=== PATIENT | male | born 1950 | race Caucasian/White ===

== ENCOUNTER 2017-03-15 18:01 | Inpatient (IN) ==
[2017-03-15] MEDS ORDERED: ASPIRIN 325 MG TABLET PO STA (18:26)
[2017-03-15] MEDS ORDERED: NITROGLYCERIN 2% OINT 1 INCH/GM PACK TOP STA (18:26)
[2017-03-15] MEDS ORDERED: METOPROLOL TARTRATE 5 MG/5 ML VIAL IV STA (18:26)
[2017-03-15] MEDS ORDERED: ASPIRIN 325 MG TABLET ONE (18:30)
[2017-03-15] MEDS ORDERED: NITROGLYCERIN 2% OINT 1 INCH/GM PACK TOP ONE (18:30)
[2017-03-15] MEDS ORDERED: METOPROLOL TARTRATE 5 MG/5 ML VIAL IV ONE (18:30)
--- NOTE | 2017-03-15 18:30 | EKG Report ---
Stationary ECG Study [facility] ER Test Date: 03/15/2017 6:21:14 PM Pat Name: LAURIE GREWAL Department: Room: Gender: M Emergency Room Specialist: MILI Schaffer : 1950 Requested by: Tanner Levine Order Number: [id number] Reading MD: KIEL JONES Intervals [place] Rate: 67 P: 70 CO: 162 QRS: -48 QRSD: 107 T: -80 QT: 454 QTc: 470 Interpretive Statements SINUS RHYTHM PATTERN CONSISTENT WITH PULMONARY DISEASE LEFT ANTERIOR FASCICULAR BLOCK INFERIOR MYOCARDIAL INFARCTION, OF INDETERMINATE AGE MARKED T-WAVE ABNORMALITY, CONSIDER ANTEROLATERAL ISCHEMIA Electronically Signed On 03-15-17 19:19:54 CDT by KIEL JONES [email or web address]
--- NOTE | 2017-03-15 18:31 | Emergency Department Note ---
Arrival - Arrival Chief Complaint: Chest Pain Stated Complaint: elev amol, sent by nathalie Jenkins [place] ED Nursing Triage Note: Pt sent from [facility] for Abnormal Trop level. Pt c/o chest pain last night. Mode of Arrival: Ambulatory Limitations: No Limitations Source: Patient Time Seen by Provider: 03/15/17 18:26 - History of Present Illness HPI Narrative: This 67-year-old white male presents with a history of several hours of severe central chest pain last night associated with diaphoresis but no shortness of breath, nausea, or vomiting. During the course of the discomfort he took 3 aspirins and the pain eventually gradually dissipated to nothing. The patient went to the [facility] this morning for evaluation and was found to have an elevated troponins and was referred here for further evaluation. The patient states that he has been pain-free since everything ceased last night and other than feeling like he was beat up, he does not complain of shortness of breath or any nausea. Currently he appears in stable medical condition. Onset (ago): hour(s) (Patient presents 18 hours post onset of symptoms) Allergies/Adverse Reactions: Allergies Allergy/AdvReac Type Severity Reaction Status Date / Time No Known Allergies Allergy Unverified 01/20/16 16:30 Home Medications: Home Medications Medication Instructions Recorded Confirmed Type Losartan [Cozaar] 50 mg PO QAM 03/15/17 03/15/17 History Metoprolol Succinate 50 mg PO QAM 03/15/17 03/15/17 History Sertraline [Zoloft] 25 mg PO QAM 03/15/17 03/15/17 History Review of System - Review of System 12 point system: reviewed and no additional remarkable complaints except as stated - Review of System Constitutional: Present: as per HPI Respiratory: Present: as per HPI Cardiovascular: Present: as per HPI Gastrointestinal: Present: as per HPI Medical,Surgical,& Family Hx - Medical History Cardio: History of: Hypertension Endocrine: History of: Dyslipidemia - Surgical History HEENT Surgeries: Surgical HX of: Eye Surgery (Left) Reproductive Surgeries: Surgical HX of;: Vasectomy - Family History Family History: Reports;: Family Cancer, Family Diabetes - Social History Smoking Status: Current every day smoker Exam Physical Examination: GENERAL: Obese white male in no acute distress. HEENT: Normocephalic. No trauma. Moist mucous membranes. EOMI. PERRLA. ENT NML NECK: Supple. No adenopathy. CARDIAC: Regular. No murmurs. Heart rate 67 CHEST: Clear to auscultation. No respiratory distress. O2 sat 97% ABDOMEN: Soft. Nontender. Active bowel sounds. EXTREMITIES: No trauma. Normal ROM. No pedal edema. SKIN: No diaphoresis. No rash. NEURO: Alert. Neuro intact no focal deficits. Vital Signs: Vital Signs Temperature 98.5 F 03/15/17 19:39 Pulse Rate 61 03/15/17 19:39 Respiratory Rate 18 03/15/17 19:39 Blood Pressure 140/86 03/15/17 19:39 O2 Sat by Pulse Oximetry 97 03/15/17 18:46 Course - Reevaluation(s) Reevaluation #1: Discussed with patient the need for hospitalization post [place]. - Consultations Consultation #1: Discussed with Dr. Fang who will admit the patient for further evaluation treatment. Results - Labs CBC & BMP: 03/15/17 18:29 03/15/17 18:29 Labs: I have reviewed the laboratory and noted the persistent elevation in troponin and the bump in BMP. - Impressions EKG sinus rhythm with normal IN interval and QRS duration. Evidence of old inferior infarct as well as a recent anteroseptal infarct with persistent T- wave inversion laterally and inferiorly. - Diagnostic Findings Procedure: Chest x-ray: image reviewed by me, report reviewed by me (No acute disease) Disposition Clinical Impression: Acute myocardial infarction Case discussed with: patient, patient's family Disposition: Still a Patient Condition: Guarded Time of Disposition: 19:50
[2017-03-15] MEDS ORDERED: CLOPIDOGREL 300 MG TABLET PO STA (18:35)
[2017-03-15] MEDS ORDERED: ONDANSETRON 4 MG/2 ML VIAL IV STA (18:35)
[2017-03-15] MEDS ORDERED: ONDANSETRON 4 MG/2 ML VIAL ONE (18:37)
[2017-03-15] MEDS ORDERED: CLOPIDOGREL 300 MG TABLET ONE (18:37)
[2017-03-15 18:41] LABS: Basophils # 0.1 10*3/uL (0.0-0.2); Basophils % 0.6 % (0.0-0.8); Eosinophils # 0.1 10*3/uL (0.0-0.87); Hematocrit 47.8 VOL% (42.0-52.0); Hemoglobin 16.2 GM/DL (14.0-18.0); Immature Granulocytes % 0.5 %; Immature Granulocytes Absolute 0.06 #; Lymphocytes # 4.1 10*3/uL (1.4-4.0); Lymphocytes % 32.8 % (21.2-54.2); Mean Corpuscular HGB Conc 33.9 GM/DL (32-36); Mean Corpuscular Hemoglobin 32 PG (27-34); Mean Corpuscular Volume 93.9 FL (87-102); Mean Platelet Volume 9.9 FL (9.6-12.0); Monocytes # 1.2 10*3/uL (0.11-0.8); Monocytes % 9.3 % (1.7-12.7); Neutrophils # 6.9 10*3/uL (1.4-7.4); Neutrophils % 55.8 % (38.7-73.9); Platelet Count 257 T/CUMM (130-400); Red Blood Count 5.09 MC/CUMM (3.8-5.5); Red Cell Distribution Width 13.3 % (9.3-17.3); White Blood Count 12.4 T/CUMM (4-12)
--- NOTE | 2017-03-15 18:52 | XRay Report ---
History: Chest pain Date: 03/15/2017 Study: Chest x-ray AP portable Comparison exam: February 25, 2015 There is stable mild cardiomegaly. There is no mediastinal mass. The pulmonary vasculature is not engorged. The lungs and pleural spaces are generally clear. Osseous structures are similar. Impression: No acute cardiopulmonary process compared to the previous study PROCEDURE INTERPRETED AT [facility] DEPARTMENT OF RADIOLOGY Final Report Signed by: Dr. Paola Hernandez
[2017-03-15 19:01] LABS: PT Patient Result 10.6 SECS; Partial Thromboplastin Time 27.1 SECS (0-40)
[2017-03-15 19:07] LABS: Albumin 3.6 G/DL (3.4-5.0); Bilirubin,Total 0.9 MG/DL (0.2-1.0); CKMB % 8.3 %; Calcium 9.1 MG/DL (8.5-10.1); Osmolality,Calculated 274.7 MOS/KG (273-304); Potassium 3.8 MMOL/L (3.5-5.1); Total Protein 7.4 G/DL (6.4-8.3)
[2017-03-15 19:12] LABS: Troponin I Only 3.41 NG/ML (0.00-0.045)
[2017-03-15 19:34] LABS: Apearance,Urine CLEAR (Clear); Bilirubin,Urine Negative (Negative); Blood, Urine Negative (Negative); Glucose,Urine (UA) Negative (Negative); Ketones,Urine Negative (Negative); Mucus,Urine Occasional /LPF (Occasional); Nitrite,Urine Negative (Negative); Protein,Urine Negative; RBC,Urine <1 /HPF (0-4); Squamous Epithelial Cell,Urine Occasional /HPF (0-10); Urine Color Yellow (Yellow); Urine Specific Gravity 1.014 (1.001-1.035); Urine Urobilinogen < 2.0 EU/DL (0.2-1.0); WBC,Urine 3 /HPF (0-6)
[2017-03-15] MEDS ORDERED: ENOXAPARIN 40 MG/0.4 ML SYRINGE SUBCUT STA (19:46)
[2017-03-15 19:50] LABS: Barbiturates Screen,Urine Negative (Negative); Benzodiazepines Screen,Urine Negative (Negative); Cannabinoid Screen,Urine Negative (Negative); Opiate Screen,Urine Negative (Negative); Phencyclidine Screen,Urine Negative (Negative)
[2017-03-15] MEDS ORDERED: ONDANSETRON 4 MG/2 ML VIAL IV PRN ×2 (19:52→21:16)
[2017-03-15] MEDS ORDERED: ENOXAPARIN 40 MG/0.4 ML SYRINGE ONE (19:58)
--- NOTE | 2017-03-15 20:57 | Cardiology History & Physical ---
Assessment and Plan (1) Anterior subendocardial IN Status: Acute Assessment and plan: Patient EKG and enzymes, it appears he has had an anterior IN. I suspect is not transmural We will continue aspirin We will continue Plavix Echo/Doppler --tomorrow, evaluate post IN Serial EKGs lipids have been checked. His LDL is above 200. We will treat per guidelines Since she is statin intolerant, will use a low-dose of Crestor Could add selenium if needed Add an BETI inhibitor post IN Add a low-dose of carvedilol post IN--beta-virgei I discussed with the patient the benefits of stopping tobacco/nicotine, the problems with continuing to use it, and options of treatment. The patient is considering this option. will like to get a heart cath on Saturday. Left heart cath and possible PTCA or stent were discussed with the patient. The risk of the procedure include but are not limited to a small risk of injury to the vessel, abnormal heart rhythm, stroke, heart attack, need for emergent surgery, contrast reaction, restenosis, infection, or . The patient voices understanding, agrees with the plan, and desires to proceed with the heart catheterization. Current Visit: Yes (2) Smoker Status: Acute Current Visit: Yes (3) Carotid disease, bilateral Status: Acute Current Visit: Yes (4) Parkinsons disease Status: Acute Current Visit: Yes (5) Peripheral neuropathy Status: Acute Current Visit: Yes (6) Hypercholesterolemia Status: Acute Current Visit: Yes (7) Overweight Status: Acute Current Visit: Yes (8) Alcohol use Status: Acute Current Visit: Yes History of Present Illness Chief complaint: "I hurt my chest yesterday" History of present illness: Mr. Barkley is a 67 year old male PCP: Morena Jose, nurse practitioner, [place], [place] Multimedia Production Assistant: None-it will be me 67-year-old male with no history of known CAD. Last night, he had severe chest pain. No nausea vomiting. He took 3 aspirin. He stated home. Chest pain went away. Did today, he went to [place] to be seen by his nurse practitioner, Ms. Morena Jose, [facility] . She did some labs. Has trouble getting blood drawn so she was able to do labs. 1 or 2 weeks ago she had an x-ray done by him that showed some calcification of his carotid arteries. . [facility] did some labs. His troponin was elevated 3.75. CK was normal at 158. EKG showed anterior IN. He was seen here. I was asked see him. Currently is having no chest pain. No orthopnea, PND, edema, palpitations, syncope, cough wheezing or phlegm. Past medical history: Hypertension probable Parkinson's disease-per Dr. Brandon Peripheral neuropathy Inactive Overweight Hypercholesterolemia Statin intolerance-is tried several side effects Not allergic to contrast Allergies: No known Social: Does smoke cigarettes. Small amount. Does drink some alcohol. He likes his whiskey and a cigarette. Family history: There is a family history of CAD. family history of diabetes. Post corneal surgery SPH: No, used to, yes, yes and yes, fbc, j No bleeding in the pt's bowels, urine, or coughing up blood. No planned surgery for the next year. No contraindication to anticoagulation for a year. Home Medications Medication Instructions Recorded Confirmed Type Losartan [Cozaar] 50 mg PO QAM 03/15/17 03/15/17 History Metoprolol Succinate 50 mg PO QAM 03/15/17 03/15/17 History Sertraline [Zoloft] 25 mg PO QAM 03/15/17 03/15/17 History Allergies Allergy/AdvReac Type Severity Reaction Status Date / Time No Known Allergies Allergy Unverified 01/20/16 16:30 12 point system: reviewed and no additional remarkable complaints except as stated (A 12 point review of systems is negative except for as mentioned in HPI. ) Medical,Surgical,& Family Hx - Medical History Cardio: History of: Hypertension Endocrine: History of: Dyslipidemia - Surgical History HEENT Surgeries: Surgical HX of: Eye Surgery (Left) Reproductive Surgeries: Surgical HX of;: Vasectomy - Family History Family History: Reports;: Family Cancer, Family Diabetes - Social History Smoking Status: Current some day smoker Frequency of Alcohol Use: Occasionally Type of Drug Use: None Lives With:: Significant Other (???) Functional capacity: independent ambulation Cardiology Physical Exam - Constitutional Vitals: Vital Signs Temp Pulse Resp BP Pulse Ox 98.5 F 62 18 147/88 100 03/15/17 19:39 03/15/17 20:27 03/15/17 20:27 03/15/17 20:27 03/15/17 20:27 Intake and Output 03/15/17 03/15/17 03/15/17 07:59 15:59 23:59 Other: Weight 97.023 kg Patient Weight 03/15/17 23:59 Weight 97.023 kg Exam: HEENT: Pupils equal, reactive to light and accommodation Neck: NoJVD or bruit Lungs clear to auscultation Heart: Regular rhythm rate with normal S1 and S2. Apical S4 Abdomen: No hepatosplenomegaly Spine/extremities: No clubbing, cyanosis, or edema Neuro: Nonfocal Psych: No depression or anxiety Femoral pulses are 4+. Foot pulses are 3+. Result/EKG - Labs CBC & BMP: 03/15/17 18:29 03/15/17 18:29 Lab Results: I have reviewed the past 24 hour labs Labs: Laboratory Results - last 24 hr 03/15/17 03/15/17 03/15/17 18:29 18:29 18:29 WBC RBC Hgb Hct MCV MCH MCHC RDW Plt Count MPV Neut % (Auto) Lymph % (Auto) [place] % (Auto) Eos % (Auto) Baso % (Auto) Neut # (Auto) Lymph # (Auto) [place] # (Auto) Eos # (Auto) Baso # (Auto) Immature Gran % Nucleated RBC % Immature Gran # Nucleated RBCs # Immature Plt Fraction INR 1.0 PT Patient/Control Mix 10.6 Circ Anticoag PTT 27.1 Sodium 138 Potassium 3.8 Chloride 103 Carbon Dioxide 28 Anion Gap 10.8 BUN 13 Creatinine 1.10 GFR Calculation 86 BUN/Creatinine Ratio 11.00 Glucose 101 Calculated Osmolality 274.7 Calcium 9.1 Total Bilirubin 0.90 AST 28 ALT 18 Alkaline Phosphatase 92 Total Creatine Kinase 158 CK-MB (CK-2) 13.1 H CK and CKMB Interp 8.3 Troponin I 3.410 H B-Natriuretic Peptide 499 H Total Protein 7.4 Albumin 3.6 Globulin 3.8 H Albumin/Globulin Ratio 0.9 L Urine Color Urine Appearance Urine pH Ur Specific [place] Urine Protein Urine Glucose (UA) Urine Ketones Urine Blood Urine Nitrate Urine Bilirubin Urine Urobilinogen Urine Leukocytes Urine RBC Urine WBC Ur Squamous Epith Cells Urine Mucus Ur Culture Indicated? Urine Opiates Screen Ur Barbiturates Screen Ur Phencyclidine Scrn U Amphetamine/Methamph U Benzodiazepines Scrn U Cocaine Metab Screen U Cannabinoids Screen 03/15/17 03/15/1717 18:29 19:20 19:20 WBC 12.4 H RBC 5.09 Hgb 16.2 Hct 47.8 MCV 93.9 MCH 32 MCHC 33.9 RDW 13.3 Plt Count 257 MPV 9.9 Neut % (Auto) 55.8 Lymph % (Auto) 32.8 [place] % (Auto) 9.3 Eos % (Auto) 1.0 Baso % (Auto) 0.6 Neut # (Auto) 6.9 Lymph # (Auto) 4.1 H [place] # (Auto) 1.2 H Eos # (Auto) 0.1 Baso # (Auto) 0.1 Immature Gran % 0.5 Nucleated RBC % 0.0 Immature Gran # 0.06 Nucleated RBCs # 0.00 Immature Plt Fraction 0.0 INR PT Patient/Control Mix Circ Anticoag PTT Sodium Potassium Chloride Carbon Dioxide Anion Gap BUN Creatinine GFR Calculation BUN/Creatinine Ratio Glucose Calculated Osmolality Calcium Total Bilirubin AST ALT Alkaline Phosphatase Total Creatine Kinase CK-MB (CK-2) CK and CKMB Interp Troponin I B-Natriuretic Peptide Total Protein Albumin Globulin Albumin/Globulin Ratio Urine Color Yellow Urine Appearance Clear Urine pH 6.0 Ur Specific [place] 1.014 Urine Protein Negative Urine Glucose (UA) Negative Urine Ketones Negative Urine Blood Negative Urine Nitrate Negative Urine Bilirubin Negative Urine Urobilinogen < 2.0 H Urine Leukocytes Negative Urine RBC <1 Urine WBC 3 Ur Squamous Epith Cells Occasional Urine Mucus Occasional Ur Culture Indicated? Not indicated Urine Opiates Screen Negative Ur Barbiturates Screen Negative Ur Phencyclidine Scrn Negative U Amphetamine/Methamph Negative U Benzodiazepines Scrn Negative U Cocaine Metab Screen Negative U Cannabinoids Screen Negative - Diagnostic Findings Procedure: Chest x-ray: report reviewed by me - EKG EKG results: interpreted by me
[2017-03-15] MEDS ORDERED: METOPROLOL TARTRATE 50 MG TABLET PO SCH (21:00)
[2017-03-15] MEDS ORDERED: MAGNESIUM SULF RIDER 4 GM in PREMIX 1 EACH IV PRN (21:16)
[2017-03-15] MEDS ORDERED: ACETAMINOPHEN 325 MG TABLET PO PRN (21:16)
[2017-03-15] MEDS ORDERED: MAGNESIUM SULF RIDER 2 GM in PREMIX 1 EACH IV PRN (21:16)
[2017-03-15] MEDS: CARVEDILOL 12.5 MG TABLET PO SCH (21:48)
[2017-03-16] MEDS: NITROGLYCERIN 2% OINT 1 INCH/GM PACK TOP SCH ×4 (00:43→17:48)
[2017-03-16 05:10] LABS: Basophils # 0.1 10*3/uL (0.0-0.2); Basophils % 0.9 % (0.0-0.8); Eosinophils # 0.2 10*3/uL (0.0-0.87); Eosinophils % 1.8 % (0.00-10.9); Hematocrit 43.5 VOL% (42.0-52.0); Hemoglobin 14.7 GM/DL (14.0-18.0); Immature Granulocytes % 0.4 %; Immature Granulocytes Absolute 0.04 #; Lymphocytes # 3.8 10*3/uL (1.4-4.0); Lymphocytes % 39.7 % (21.2-54.2); Mean Corpuscular HGB Conc 33.8 GM/DL (32-36); Mean Corpuscular Hemoglobin 32 PG (27-34); Mean Platelet Volume 10.1 FL (9.6-12.0); Monocytes # 0.8 10*3/uL (0.11-0.8); Monocytes % 8.4 % (1.7-12.7); Neutrophils # 4.7 10*3/uL (1.4-7.4); Neutrophils % 48.8 % (38.7-73.9); Platelet Count 235 T/CUMM (130-400); Red Blood Count 4.58 MC/CUMM (3.8-5.5); Red Cell Distribution Width 13.6 % (9.3-17.3); White Blood Count 9.5 T/CUMM (4-12)
[2017-03-16 05:49] LABS: Albumin 3.1 G/DL (3.4-5.0); Bilirubin,Total 0.7 MG/DL (0.2-1.0); Calcium 8.7 MG/DL (8.5-10.1); Total Protein 6.2 G/DL (6.4-8.3)
[2017-03-16 05:50] LABS: CKMB % 8.2 %; Osmolality,Calculated 278.5 MOS/KG (273-304); Potassium 4.3 MMOL/L (3.5-5.1)
[2017-03-16 05:51] LABS: Troponin I Only 2.81 NG/ML (0.00-0.045)
--- NOTE | 2017-03-16 07:48 | EKG Report ---
Stationary ECG Study [facility] Test Date: 03/16/2017 7:49:01 AM Pat Name: LAURIE GREWAL Department: Room: 125 Gender: M Burner Operator: MYRTLE : 1950 Requested by: Kiel Fang Order Number: [id number] Reading MD: KIEL FANG Intervals [place] Rate: 64 P: 64 [place]: 169 QRS: -58 QRSD: 110 T: 231 QT: 514 QTc: 523 Interpretive Statements SINUS RHYTHM LEFT ANTERIOR FASCICULAR BLOCK ANTERIOR MYOCARDIAL INFARCTION, PROBABLY RECENT INFERIOR MYOCARDIAL INFARCTION, OF INDETERMINATE AGE Electronically Signed On 03-16-17 12:20:10 CDT by KIEL FANG [email or web address]
[2017-03-16] MEDS: ASPIRIN 325 MG TABLET PO SCH (08:49)
[2017-03-16] MEDS: CARVEDILOL 12.5 MG TABLET PO SCH ×2 (08:49→21:08)
[2017-03-16] MEDS: PANTOPRAZOLE 40 MG TABLET PO SCH (08:49)
[2017-03-16] MEDS: CAPTOPRIL 6.25 MG TABLET PO SCH ×3 (08:49→21:08)
[2017-03-16] MEDS: SERTRALINE 25 MG TABLET PO SCH (08:49)
[2017-03-16] MEDS: ENOXAPARIN 40 MG/0.4 ML SYRINGE SUBCUT SCH ×2 (08:49→21:08)
[2017-03-16] MEDS ORDERED: CLOPIDOGREL 75 MG TABLET PO SCH (09:00)
--- NOTE | 2017-03-16 12:51 | ECHO Report ---
Randal Barkley Exam Date: 03/16/2017 08:31 Referring Physician: Technologist: Tiffany Crane RDCS Age: 67 Ht (in): 71 Wt (lb): 213 Gender: M Exam Location: [facility] Echo Indications: Chest pain, unspecified, Anterior subendocardial HI, Nicotine dependence, cigarettes, uncomplicated, Bilateral carotid disease, Parkinsons, Peripheral neuropathy, Essential (primary) hypertension, Dyslipidemia, Hypercolesterolemia, ETOH use BP: 131 / 89 HR: 70 Rhythm: Sinus Technical Quality: Good IMPRESSIONS Moderate left ventricular hypertrophy. Left ventricular ejection fraction is estimated at 40 -50%. Distal anterolateral, mid- distal septal, and apical hypokinesis. Mild atrial enlargement in apical view (elongated RA),. Mild atrial enlargement in apical view (elongated LA). Mild tricuspid valve regurgitation. Tricuspid regurgitation velocities suggest a PAP of 40 mmHg. MEASUREMENTS (Male / Female) Normal Values 2D ECHO LV Diastolic Diameter PLAX 5.1 cm 4.2 - 5.9 / 3.9 - 5.3 cm LV Systolic Diameter PLAX 3.1 cm LV Fractional Shortening PLAX 39.4 % IVS Diastolic Thickness 1.6 cm 0.6 - 1.0 / 0.6 - 0.9 cm LVPW Diastolic Thickness 1.6 cm 0.6 - 1.0 / 0.6 - 0.9 cm RV Internal Dim ED PLAX 3.2 cm Aortic Root Diameter 3.8 cm LA Systolic Diameter LX 5.3 cm 3.0 - 4.0 / 2.7 - 3.8 cm DOPPLER TR Peak Velocity 273.0 cm/s TR Peak Gradient 29.8 mmHg FINDINGS Left Ventricle Normal left ventricular cavity size. Moderate left ventricular hypertrophy. Left ventricular ejection fraction is estimated at 40 - 50%. distal anterolateral, mid distal septal, and apical hypokinesis Right Ventricle The right ventricle is normal in size and function. Right Atrium Mild atrial enlargement in apical view (elongated RA), Left Atrium Mild atrial enlargement in apical view (elongated LA). Mitral Valve Morphologically normal mitral valve without significant stenosis or prolapse. There is no mitral regurgitation. Aortic Valve Morphologically normal aortic valve without significant sclerosis or stenosis. There is no aortic regurgitation. Tricuspid Valve Morphologically normal tricuspid valve. Mild tricuspid valve regurgitation. Tricuspid regurgitation velocities suggest a PAP of 40 mmHg. Pulmonic Valve Morphologically normal pulmonic valve without significant stenosis. There is no pulmonic regurgitation. Pericardium Normal pericardium without effusion. Aorta Normal ascending aorta dimension. Eric Fang MD (Electronically Signed) Final Date: 16 March 2017 12:50
--- NOTE | 2017-03-16 14:09 | Cardiology Progress Note ---
Assessment and Plan (1) Anterior subendocardial AL Status: Acute Assessment and plan: Patient EKG and enzymes, it appears he has had an anterior AL. I suspect is not transmural We will continue aspirin We will continue Plavix Echo/Doppler --tomorrow, evaluate post AL Serial EKGs lipids have been checked. His LDL is above 200. We will treat per guidelines Since she is statin intolerant, will use a low-dose of Crestor Could add selenium if needed Add an BETI inhibitor post AL Add a low-dose of carvedilol post AL--beta-virgie I discussed with the patient the benefits of stopping tobacco/nicotine, the problems with continuing to use it, and options of treatment. The patient is considering this option. will like to get a heart cath on Saturday. Left heart cath and possible PTCA or stent were discussed with the patient. The risk of the procedure include but are not limited to a small risk of injury to the vessel, abnormal heart rhythm, stroke, heart attack, need for emergent surgery, contrast reaction, restenosis, infection, or . The patient voices understanding, agrees with the plan, and desires to proceed with the heart catheterization. 03/16/17 No more chest pain No overt heart failure Echo reveals moderate LV systolic dysfunction We will do the heart cath on Saturday at 8 AM. He agrees. Recheck CMP Continue Lovenox Managed transfer, moved to telemetry Current Visit: Yes (2) Smoker Status: Acute Current Visit: Yes (3) Carotid disease, bilateral Status: Acute Current Visit: Yes (4) Parkinsons disease Status: Acute Current Visit: Yes (5) Peripheral neuropathy Status: Acute Current Visit: Yes (6) Hypercholesterolemia Status: Acute Current Visit: Yes (7) Overweight Status: Acute Current Visit: Yes (8) Alcohol use Status: Acute Current Visit: Yes Cardiology - PN: Subj Interval history: No chest pain or shortness of breath Exam (Progress Note) - Constitutional Vitals: Period Temp Pulse Resp BP Sys/Moser Pulse Ox Last 24 Hr 97.3 F-98.8 F 58-85 13-25 105-162/69-111 90-100 Exam: HEENT: Pupils equal, reactive to light and accommodation Neck: NoJVD or bruit Lungs clear to auscultation Heart: Regular rhythm rate with normal S1 and S2. Apical S4, 2/6 systolic ejection murmur along the left lower sternal border Abdomen: No hepatosplenomegaly Spine/extremities: No clubbing, cyanosis, or edema Neuro: Nonfocal Psych: No depression or anxiety Result/EKG - Labs CBC & BMP: 03/16/17 04:29 03/16/17 04:29 Lab Results: I have reviewed the past 24 hour labs Labs: Laboratory Results - last 24 hr 03/15/17 03/15/17 03/15/17 18:29 18:29 18:29 WBC RBC Hgb Hct MCV MCH MCHC RDW Plt Count MPV Neut % (Auto) Lymph % (Auto) [place] % (Auto) Eos % (Auto) Baso % (Auto) Neut # (Auto) Lymph # (Auto) [place] # (Auto) Eos # (Auto) Baso # (Auto) Immature Gran % Nucleated RBC % Immature Gran # Nucleated RBCs # Immature Plt Fraction INR 1.0 PT Patient/Control Mix 10.6 Circ Anticoag PTT 27.1 Sodium 138 Potassium 3.8 Chloride 103 Carbon Dioxide 28 Anion Gap 10.8 BUN 13 Creatinine 1.10 GFR Calculation 86 BUN/Creatinine Ratio 11.00 Glucose 101 Calculated Osmolality 274.7 Calcium 9.1 Total Bilirubin 0.90 AST 28 ALT 18 Alkaline Phosphatase 92 Total Creatine Kinase 158 CK-MB (CK-2) 13.1 H CK and CKMB Interp 8.3 Troponin I 3.410 H B-Natriuretic Peptide 499 H Total Protein 7.4 Albumin 3.6 Globulin 3.8 H Albumin/Globulin Ratio 0.9 L Urine Color Urine Appearance Urine pH Ur Specific [place] Urine Protein Urine Glucose (UA) Urine Ketones Urine Blood Urine Nitrate Urine Bilirubin Urine Urobilinogen Urine Leukocytes Urine RBC Urine WBC Ur Squamous Epith Cells Urine Mucus Ur Culture Indicated? Urine Opiates Screen Ur Barbiturates Screen Ur Phencyclidine Scrn U Amphetamine/Methamph U Benzodiazepines Scrn U Cocaine Metab Screen U Cannabinoids Screen 03/15/17 03/15/17 03/15/17 18:29 19:20 19:20 WBC 12.4 H RBC 5.09 Hgb 16.2 Hct 47.8 MCV 93.9 MCH 32 MCHC 33.9 RDW 13.3 Plt Count 257 MPV 9.9 Neut % (Auto) 55.8 Lymph % (Auto) 32.8 [place] % (Auto) 9.3 Eos % (Auto) 1.0 Baso % (Auto) 0.6 Neut # (Auto) 6.9 Lymph # (Auto) 4.1 H [place] # (Auto) 1.2 H Eos # (Auto) 0.1 Baso # (Auto) 0.1 Immature Gran % 0.5 Nucleated RBC % 0.0 Immature Gran # 0.06 Nucleated RBCs # 0.00 Immature Plt Fraction 0.0 INR PT Patient/Control Mix Circ Anticoag PTT Sodium Potassium Chloride Carbon Dioxide Anion Gap BUN Creatinine GFR Calculation BUN/Creatinine Ratio Glucose Calculated Osmolality Calcium Total Bilirubin AST ALT Alkaline Phosphatase Total Creatine Kinase CK-MB (CK-2) CK and CKMB Interp Troponin I B-Natriuretic Peptide Total Protein Albumin Globulin Albumin/Globulin Ratio Urine Color Yellow Urine Appearance Clear Urine pH 6.0 Ur Specific [place] 1.014 Urine Protein Negative Urine Glucose (UA) Negative Urine Ketones Negative Urine Blood Negative Urine Nitrate Negative Urine Bilirubin Negative Urine Urobilinogen < 2.0 H Urine Leukocytes Negative Urine RBC <1 Urine WBC 3 Ur Squamous Epith Cells Occasional Urine Mucus Occasional Ur Culture Indicated? Not indicated Urine Opiates Screen Negative Ur Barbiturates Screen Negative Ur Phencyclidine Scrn Negative U Amphetamine/Methamph Negative U Benzodiazepines Scrn Negative U Cocaine Metab Screen Negative U Cannabinoids Screen Negative 03/15/17 03/16/17 03/16/17 22:42 04:29 04:29 WBC RBC Hgb Hct MCV MCH MCHC RDW Plt Count MPV Neut % (Auto) Lymph % (Auto) [place] % (Auto) Eos % (Auto) Baso % (Auto) Neut # (Auto) Lymph # (Auto) [place] # (Auto) Eos # (Auto) Baso # (Auto) Immature Gran % Nucleated RBC % Immature Gran # Nucleated RBCs # Immature Plt Fraction INR PT Patient/Control Mix Circ Anticoag PTT Sodium 139 Potassium 4.3 Chloride 104 Carbon Dioxide 31 Anion Gap 8.3 BUN 14 Creatinine 1.10 GFR Calculation 85 BUN/Creatinine Ratio 12.00 Glucose 108 H Calculated Osmolality 278.5 Calcium 8.7 Total Bilirubin 0.70 AST 28 ALT 20 Alkaline Phosphatase 86 Total Creatine Kinase 125 D CK-MB (CK-2) 10.2 H CK and CKMB Interp 8.2 Troponin I 2.970 H 2.810 H B-Natriuretic Peptide 566 H Total Protein 6.2 L Albumin 3.1 L Globulin 3.1 Albumin/Globulin Ratio 1.0 L Urine Color Urine Appearance Urine pH Ur Specific [place] Urine Protein Urine Glucose (UA) Urine Ketones Urine Blood Urine Nitrate Urine Bilirubin Urine Urobilinogen Urine Leukocytes Urine RBC Urine WBC Ur Squamous Epith Cells Urine Mucus Ur Culture Indicated? Urine Opiates Screen Ur Barbiturates Screen Ur Phencyclidine Scrn U Amphetamine/Methamph U Benzodiazepines Scrn U Cocaine Metab Screen U Cannabinoids Screen 03/16/17 04:29 WBC 9.5 RBC 4.58 Hgb 14.7 Hct 43.5 MCV 95.0 MCH 32 MCHC 33.8 RDW 13.6 Plt Count 235 MPV 10.1 Neut % (Auto) 48.8 Lymph % (Auto) 39.7 [place] % (Auto) 8.4 Eos % (Auto) 1.8 Baso % (Auto) 0.9 H Neut # (Auto) 4.7 Lymph # (Auto) 3.8 [place] # (Auto) 0.8 Eos # (Auto) 0.2 Baso # (Auto) 0.1 Immature Gran % 0.4 Nucleated RBC % 0.0 Immature Gran # 0.04 Nucleated RBCs # 0.00 Immature Plt Fraction 0.0 INR PT Patient/Control Mix Circ Anticoag PTT Sodium Potassium Chloride Carbon Dioxide Anion Gap BUN Creatinine GFR Calculation BUN/Creatinine Ratio Glucose Calculated Osmolality Calcium Total Bilirubin AST ALT Alkaline Phosphatase Total Creatine Kinase CK-MB (CK-2) CK and CKMB Interp Troponin I B-Natriuretic Peptide Total Protein Albumin Globulin Albumin/Globulin Ratio Urine Color Urine Appearance Urine pH Ur Specific [place] Urine Protein Urine Glucose (UA) Urine Ketones Urine Blood Urine Nitrate Urine Bilirubin Urine Urobilinogen Urine Leukocytes Urine RBC Urine WBC Ur Squamous Epith Cells Urine Mucus Ur Culture Indicated? Urine Opiates Screen Ur Barbiturates Screen Ur Phencyclidine Scrn U Amphetamine/Methamph U Benzodiazepines Scrn U Cocaine Metab Screen U Cannabinoids Screen - EKG EKG results: interpreted by me
[2017-03-17] MEDS: NITROGLYCERIN 2% OINT 1 INCH/GM PACK TOP SCH ×4 (02:38→17:49)
[2017-03-17] MEDS: CAPTOPRIL 6.25 MG TABLET PO SCH ×3 (08:12→20:51)
[2017-03-17] MEDS: ENOXAPARIN 40 MG/0.4 ML SYRINGE SUBCUT SCH ×2 (08:12→20:51)
[2017-03-17] MEDS: ASPIRIN 325 MG TABLET PO SCH (08:12)
[2017-03-17] MEDS: PANTOPRAZOLE 40 MG TABLET PO SCH (08:12)
[2017-03-17] MEDS: SERTRALINE 25 MG TABLET PO SCH (08:12)
[2017-03-17] MEDS: CARVEDILOL 12.5 MG TABLET PO SCH ×2 (08:12→20:51)
--- NOTE | 2017-03-17 09:24 | EKG Report ---
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 : 1950 Requested by: Kiel Fang Order Number: [id number] Reading MD: KIEL FANG Intervals [place] Rate: 68 P: 26 OK: 181 QRS: -50 QRSD: 97 T: 251 QT: 488 QTc: 505 Interpretive Statements SINUS RHYTHM WITH OCCASIONAL SUPRAVENTRICULAR PREMATURE COMPLEXES LOW QRS VOLTAGE IN PRECORDIAL LEADS ANTERIOR MYOCARDIAL INFARCTION, PROBABLY RECENT INFERIOR MYOCARDIAL INFARCTION, OF INDETERMINATE AGE WITH POSTERIOR EXTENSION INTERPRETATION BASED ON A DEFAULT AGE OF 40 YEARS Electronically Signed On 03-17-17 11:46:47 CDT by KIEL FANG [email or web address]
--- NOTE | 2017-03-17 14:44 | Cardiology Progress Note ---
Assessment and Plan (1) Anterior subendocardial NM Status: Acute Assessment and plan: Patient EKG and enzymes, it appears he has had an anterior NM. I suspect is not transmural We will continue aspirin We will continue Plavix Echo/Doppler --tomorrow, evaluate post NM Serial EKGs lipids have been checked. His LDL is above 200. We will treat per guidelines Since she is statin intolerant, will use a low-dose of Crestor Could add selenium if needed Add an BETI inhibitor post NM Add a low-dose of carvedilol post NM--beta-virgie I discussed with the patient the benefits of stopping tobacco/nicotine, the problems with continuing to use it, and options of treatment. The patient is considering this option. will like to get a heart cath on Saturday. Left heart cath and possible PTCA or stent were discussed with the patient. The risk of the procedure include but are not limited to a small risk of injury to the vessel, abnormal heart rhythm, stroke, heart attack, need for emergent surgery, contrast reaction, restenosis, infection, or . The patient voices understanding, agrees with the plan, and desires to proceed with the heart catheterization. 03/16/17 No more chest pain No overt heart failure Echo reveals moderate LV systolic dysfunction We will do the heart cath on Saturday at 8 AM. He agrees. Recheck CMP Continue Lovenox Managed transfer, moved to telemetry 03/17/17: Echo revealed mild to moderate LV dysfunction No overt heart failure Tolerating the new medicines well, renal function and potassium are good. I reviewed the heart cath. He agrees to proceed I am holding the Plavix, last dose yesterday, just in case he needs bypass grafting For heart cath tomorrow at 8 AM, orders are to be written Ambulate slowly in room Current Visit: Yes (2) Smoker Status: Acute Current Visit: Yes (3) Carotid disease, bilateral Status: Acute Current Visit: Yes (4) Parkinsons disease Status: Acute Current Visit: Yes (5) Peripheral neuropathy Status: Acute Current Visit: Yes (6) Hypercholesterolemia Status: Acute Current Visit: Yes (7) Overweight Status: Acute Current Visit: Yes (8) Alcohol use Status: Acute Current Visit: Yes Cardiology - PN: Subj Interval history: No chest pain or shortness of breath. Exam (Progress Note) - Constitutional Vitals: Period Temp Pulse Resp BP Sys/Moser Pulse Ox Last 24 Hr 97.8 F-98.0 F 60-86 15-20 121-144/69-87 92-99 Exam: HEENT: Pupils equal, reactive to light and accommodation Neck: NoJVD or bruit Lungs clear to auscultation Heart: Regular rhythm rate with normal S1 and S2. Apical S4, 2/6 systolic ejection murmur along the left lower sternal border Abdomen: No hepatosplenomegaly Spine/extremities: No clubbing, cyanosis, or edema Neuro: Nonfocal Psych: No depression or anxiety Result/EKG - Labs CBC & BMP: 03/16/17 04:29 03/16/17 04:29 Lab Results: I have reviewed the past 24 hour labs - Diagnostic Findings Procedure: Chest x-ray: report reviewed by me - EKG EKG results: interpreted by me Specialty Discharge - Follow Up or Referrals Follow up with: Eric Fang MD [Physician] -
[2017-03-17] MEDS ORDERED: diphenhydrAMINE CAP 25 MG CAPSULE PO ONE (14:50)
[2017-03-17] MEDS ORDERED: DIAZEPAM 5 MG TABLET PO ONE (14:50)
[2017-03-17] MEDS ORDERED: POTASSIUM CHLORIDE RIDER 10 MEQ in PREMIX 1 EACH IV PRN (14:50)
[2017-03-17] MEDS ORDERED: MAGNESIUM SULF RIDER 2 GM in PREMIX 1 EACH IV PRN (14:50)
--- NOTE | 2017-03-17 14:50 | History and Physical Update ---
Sedation H&P Update - History and Physical H&P was reviewed, the patient examined and there: are no changes in the patients condition since last H&P was completed. - Dictation Physical: refer to H&P completed by admitting physician - Physical Exam Mental Status: alert and oriented Heart: regular rate and rhythm Lung: clear to auscultation Abdomen: within normal limits Vitals: within normal limits - Sedation Plan for Sedation: minimal Patient Consent: Procedure disscussed with patient and patinet has consented., Risks and benefits were discussed with patient,including infection,, bleeding, injury to surrounding structures, seizure, temporary nerve, Patient understands and accepts potential risks/benefits and agrees to, proceed. (Left heart cath and possible PTCA or stent were discussed with the patient. The risk of the procedure include but are not limited to a small risk of injury to the vessel, abnormal heart rhythm, stroke, heart attack, need for emergent surgery, contrast reaction, restenosis, infection, or . The patient voices understanding, agrees with the plan, and desires to proceed with the heart catheterization.) ASA Class: III Airway Assessment: Class II: Soft palate, uvula, fauces visible
[2017-03-18] MEDS: NITROGLYCERIN 2% OINT 1 INCH/GM PACK TOP SCH ×3 (00:15→13:29)
[2017-03-18] MEDS: SODIUM CHLORIDE 0.9% 1,000 ML IV SCH ×4 (00:15→20:39)
[2017-03-18 05:31] LABS: Calcium 8.7 MG/DL (8.5-10.1); Osmolality,Calculated 281.3 MOS/KG (273-304); Potassium 4.9 MMOL/L (3.5-5.1)
[2017-03-18] MEDS ORDERED: DIAZEPAM 5 MG TABLET ONE (07:18)
[2017-03-18] MEDS ORDERED: diphenhydrAMINE CAP 50 MG CAPSULE ONE (07:18)
[2017-03-18] MEDS: ASPIRIN 325 MG TABLET PO SCH ×2 (07:27→10:13)
[2017-03-18] MEDS ORDERED: LIDOCAINE 1% 20 ML VIAL ONE (07:44)
[2017-03-18] MEDS ORDERED: MIDAZOLAM 2 MG/2 ML VIAL ONE (07:45)
[2017-03-18] MEDS ORDERED: MEPERIDINE 25 MG/1 ML VIAL ONE (07:45)
[2017-03-18] MEDS ORDERED: HEPARIN 5,000 UNIT/1 ML VIAL ONE (08:10)
[2017-03-18] MEDS ORDERED: TIROFIBAN 5,000 MCG/100 ML PREMIX IV ONE (08:34)
[2017-03-18] MEDS ORDERED: TIROFIBAN 5,000 MCG/100 ML PREMIX IV SCH (08:41)
[2017-03-18] MEDS ORDERED: TICAGRELOR 90 MG TABLET ONE (09:38)
[2017-03-18] MEDS ORDERED: NIFEdipine 10 MG CAPSULE ONE (09:47)
[2017-03-18 10:10] LABS: Apearance,Urine CLEAR (Clear); Bilirubin,Urine Negative (Negative); Blood, Urine Large mg/dL (Negative); Glucose,Urine (UA) Negative (Negative); Ketones,Urine Negative (Negative); Mucus,Urine Occasional /LPF (Occasional); Nitrite,Urine Negative (Negative); Protein,Urine Negative; RBC,Urine 223 /HPF (0-4); Squamous Epithelial Cell,Urine Occasional /HPF (0-10); Urine Color Yellow (Yellow); Urine Specific Gravity 1.047 (1.001-1.035); Urine Urobilinogen < 2.0 EU/DL (0.2-1.0); WBC,Urine 2 /HPF (0-6)
--- NOTE | 2017-03-18 10:10 | Operative Note ---
Date of procedure: 03/18/17 Procedure Preformed: Left heart cath Coronary angiography Left ventriculography Angiogram of the right femoral artery Aggrastat bolus and infusion for PCI Stent of the proximal IXF-jvcy-amcugwt stent, 2.5 x 18 mm Xience Alpine Stent of the mid right coronary, prior to the FKV-ympa-jsghfex stent, 3.5 x 15 mm Zions Alpine--second vessel Loading with Brilinta, 180 mg p.o. Angio-Seal of the right femoral artery-successful Surgeon / Physician: Eric Fang Shellac Polisher: Jeremy Sweeney Post-op diagnosis: same (Status post anterior non-STEMI. Patient has moderate LV dysfunction. evaluate for CAD) Findings: Impression: Significant disease in the proximal LAD and the mid right coronary, prior to the PDA Otherwise mild disease throughout his coronary arterial vessels Moderate global left systolic dysfunction, LVEF is 40% Distal anterolateral severe hypokinesis, apical akinesis Moderate elevation of LVEDP, 20 mmHg Aggrastat bolus and infusion-for PCI --Status post successful stenting of the proximal VIU-xyvp-ybmcdcr stent, direct stenting, 2.5 x 18 mm Zions Alpine --Status post successful stenting of the mid right coronary, prior to the PDA- drug-eluting stent, 3.5 x 15 mm Zions Alpine--second vessel Angiogram right femoral artery Angio-Seal right femoral artery Brilinta 180 mg p.o. Plan/recommendations: Based on this angiogram and given that he had spasm of the right coronary, I suspect he has spasm and thrombus of his proximal LAD which results in the interim I. It was stopped time taking before aspirin chewed. He has had some damage. I believe is likely the distal LAD and apical wall motion abnormality will improve over time with reperfusion, Coreg, and BETI inhibitor. He will be followed. Is willing to give a trial of low-dose of Crestor, as he has had some statin intolerance in the past. Hopefully can tolerate it. Otherwise, the emphasized to him the importance of taking the Brilinta and aspirin to help prevent stent thrombosis. The patient will have risk factors optimized. The patient will be on antiplatelet medications to include aspirin indefinitely and Plavix or Brilinta for at least a year. Follow -up will be scheduled. Potentially, he can be discharged tomorrow. I will likely see him back within the next 2-4 weeks. I could see him sooner should problems arise. Addenda: I saw the patient post-cath. the groin puncture site and distal pulse are stable. vital signs are stable and the patient will be observed closely overnight. Specimens: none sent Estimated blood loss: minimal Condition: stable Anesthesia: local, conscious sedation Disposition: floor
--- NOTE | 2017-03-18 10:19 | Cardiology Operative Report ---
Date of Procedure:: 03/18/17 Post-op diagnosis: same (Status post anterior non-STEMI. Patient has moderate LV dysfunction. evaluate for CAD) Procedure: Date of procedure: 03/18/17 Procedure Preformed: Left heart cath Coronary angiography Intracoronary nitroglycerin-for catheter induced spasm of the right coronary artery Left ventriculography Angiogram of the right femoral artery Aggrastat bolus and infusion for PCI Stent of the proximal XXO-omvi-wedzpla stent, 2.5 x 18 mm Xience Alpine Stent of the mid right coronary, prior to the JWG-adbm-egithiw stent, 3.5 x 15 mm Zions Alpine--second vessel Loading with Brilinta, 180 mg p.o. Angio-Seal of the right femoral artery-successful Surgeon / Physician: Eric Fang Yarn Tester: Jeremy Sweeney Post-op diagnosis: same (Status post anterior non-STEMI. Patient has moderate LV dysfunction. evaluate for CAD) procedure: The patient was prepped and draped in usual manner. Entered the right femoral artery via the Seldinger technique. I used a sheath and then used a JL4 and engaged left coronary. Multiple views were taken. I then exchanged for a JR4. Multiple views of the right coronary were taken. There was noted to be some coronary spasm, thought to be catheter induced. I then gave some intracoronary nitroglycerin, 600 mcg and 400 more micrograms. That area of spasm completely resolved. I then exchanged for an angled pigtail. I crossed the valve. Left ventricular end-diastolic pressures measured. Left ventriculography was done. Left ventricle pullback was done. The catheters were then removed from the patient. Please see the data sheets for the details of catheters used. Intervention: Proximal LAD: Cardiovascular surgery was available for any complications. The coronary intervention was done using a JL4 guiding catheter and a 0.014 run through wire. After no predilatation, I then placed a 2.5 x 18 mm Zions Alpine coronary stent across the lesion of the proximal LAD. It was deployed. Afterwards, there was a good result. There is question of some narrowing distal to the stent. I gave some intracoronary nitroglycerin, 400 mcg. it did not change. Right coronary artery stent: I then removed this guide and used an AL 1 guide. I used the same 0.014 run through wire. I cross the mid right coronary lesion prior to the PDA. I then direct stented this lesion with a 3.5 x 15 mm Zions Alpine. Please see the data sheet for the exact pressures and times. Afterwards it was a good result. Angiogram of the right femoral artery was done, either at that time or as a follow-through from the aortogram/left ventriculogram. Closure device was used -see data sheets. patient was transferred to her room on telemetry in satisfactory condition. Please see the cath report for details of the pressures and times. Complications: none Hemodynamic data: LVEDP was mmHg. Angiographic data: The left main coronary was large and had minimal luminal irregularities. The left anterior descending artery was moderate to large. There is one major diagonal. The LAD had a proximal tubular 70% narrowing. There is HARRY grade III flow. It probably was a site of spasm and/or thrombosis which caused the coronary event. Otherwise there was mild to moderate disease in the LAD and the diagonal The left circumflex system was moderate to large. It was 1 major obtuse marginal and 1 posterior lateral branches. There were minimal luminal irregularities in this vessel. No significant obstructive disease. The right coronary artery was large in size, dominant vessel with the PDA and post lateral branch. Initially, there was development of proximal right coronary artery spasm due to the catheter. After intracoronary nitroglycerin, that lesion went away. However there was mild disease throughout the right coronary with the exception of just before the PDA there was an 80% eccentric narrowing. There is HARRY grade III flow. It did not go away with intracoronary nitroglycerin. NATH left ventriculography revealed moderate reduction in global left ventricular systolic function. Overall ejection fraction was at least 40%. There was distal anterolateral hypokinesis and apical akinesis. There is no significant mitral regurgitation. After intervention of the proximal LAD there was a 0% residual and HARRY grade III flow After intervention/stenting of the mid right coronary lesion, there was a 0% residual and AHRRY grade III flow. Angiogram of the right femoral artery revealed the puncture site to be in a large vessel, above the bifurcation. It was suitable for a clocure device. Impression: Significant disease in the proximal LAD and the mid right coronary, prior to the PDA Catheter induced spasm of the proximal right coronary artery-resolved with intracoronary nitroglycerin Otherwise mild disease throughout his coronary arterial vessels Moderate global left systolic dysfunction, LVEF is 40% Distal anterolateral severe hypokinesis, apical akinesis Moderate elevation of LVEDP, 20 mmHg Aggrastat bolus and infusion-for PCI --Status post successful stenting of the proximal UFL-smqf-ofkiqle stent, direct stenting, 2.5 x 18 mm Zions Alpine --Status post successful stenting of the mid right coronary, prior to the PDA- drug-eluting stent, 3.5 x 15 mm Zions Alpine--second vessel Angiogram right femoral artery Angio-Seal right femoral artery Brilinta 180 mg p.o. Plan/recommendations: Based on this angiogram and given that he had spasm of the right coronary, I suspect he has spasm and thrombus of his proximal LAD which results in the interim I. It was stopped time taking before aspirin chewed. He has had some damage. I believe is likely the distal LAD and apical wall motion abnormality will improve over time with reperfusion, Coreg, and BETI inhibitor. He will be followed. Is willing to give a trial of low-dose of Crestor, as he has had some statin intolerance in the past. Hopefully can tolerate it. Otherwise, the emphasized to him the importance of taking the Brilinta and aspirin to help prevent stent thrombosis. The patient will have risk factors optimized. The patient will be on antiplatelet medications to include aspirin indefinitely and Plavix or Brilinta for at least a year. Follow -up will be scheduled. Potentially, he can be discharged tomorrow. I will likely see him back within the next 2-4 weeks. I could see him sooner should problems arise. Addenda: I saw the patient post-cath. the groin puncture site and distal pulse are stable. vital signs are stable and the patient will be observed closely overnight. Specimens: none sent Estimated blood loss: minimal Condition: stable Anesthesia: local, conscious sedation Disposition: floor Anesthesia: local, minimal conscious sedation Surgeon / Physician: Eric Fang Yarn Tester: other Estimated blood loss: minimal Specimens: none sent Condition: stable Disposition: floor
--- NOTE | 2017-03-18 10:46 | EKG Report ---
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
[2017-03-18] MEDS: ENOXAPARIN 40 MG/0.4 ML SYRINGE SUBCUT SCH (11:31)
[2017-03-18] MEDS: CARVEDILOL 12.5 MG TABLET PO SCH ×2 (11:38→20:37)
[2017-03-18] MEDS: SERTRALINE 25 MG TABLET PO SCH (11:38)
[2017-03-18] MEDS: PANTOPRAZOLE 40 MG TABLET PO SCH (11:38)
[2017-03-18] MEDS: CAPTOPRIL 6.25 MG TABLET PO SCH ×3 (11:38→20:37)
[2017-03-18] MEDS ORDERED: LIDOCAINE/PRILOCAINE CREAM 5 GM TUBE TOP ONE (13:41)
[2017-03-18] MEDS: HYDROmorphone 2 MG/1 ML VIAL IV PRN ×2 (13:57→18:38)
[2017-03-18] MEDS ORDERED: diphenhydrAMINE CAP 25 MG CAPSULE PO PRN (16:10)
[2017-03-18 19:00] LABS: Troponin I Only 0.683 NG/ML (0.00-0.045)
[2017-03-18] MEDS: TICAGRELOR 90 MG TABLET PO SCH (20:36)
[2017-03-18] MEDS ORDERED: ROSUVASTATIN 10 MG TABLET PO SCH (21:00)
[2017-03-19 04:42] LABS: Basophils # 0.1 10*3/uL (0.0-0.2); Basophils % 0.6 % (0.0-0.8); Eosinophils # 0.1 10*3/uL (0.0-0.87); Eosinophils % 1.1 % (0.00-10.9); Hematocrit 40.3 VOL% (42.0-52.0); Hemoglobin 13.8 GM/DL (14.0-18.0); Immature Granulocytes % 0.4 %; Immature Granulocytes Absolute 0.05 #; Lymphocytes # 2.4 10*3/uL (1.4-4.0); Lymphocytes % 20.4 % (21.2-54.2); Mean Corpuscular HGB Conc 34.2 GM/DL (32-36); Mean Corpuscular Hemoglobin 32 PG (27-34); Mean Corpuscular Volume 94.6 FL (87-102); Mean Platelet Volume 10.5 FL (9.6-12.0); Monocytes % 8.2 % (1.7-12.7); Neutrophils # 8.2 10*3/uL (1.4-7.4); Neutrophils % 69.3 % (38.7-73.9); Platelet Count 205 T/CUMM (130-400); Red Blood Count 4.26 MC/CUMM (3.8-5.5); Red Cell Distribution Width 13.6 % (9.3-17.3); White Blood Count 11.8 T/CUMM (4-12)
[2017-03-19 05:14] LABS: Troponin I Only 0.454 NG/ML (0.00-0.045)
[2017-03-19 05:22] LABS: Calcium 8.4 MG/DL (8.5-10.1); Magnesium 2.2 MG/DL (1.8-2.4); Osmolality,Calculated 270.8 MOS/KG (273-304); Potassium 4.2 MMOL/L (3.5-5.1)
[2017-03-19 07:49] VITALS: BP 147/87
[2017-03-19] MEDS: SERTRALINE 25 MG TABLET PO SCH (08:50)
[2017-03-19] MEDS: CAPTOPRIL 6.25 MG TABLET PO SCH (08:50)
[2017-03-19] MEDS: TICAGRELOR 90 MG TABLET PO SCH (08:51)
[2017-03-19] MEDS: CARVEDILOL 12.5 MG TABLET PO SCH (08:51)
[2017-03-19] MEDS: PANTOPRAZOLE 40 MG TABLET PO SCH (08:51)
[2017-03-19] MEDS ORDERED: ASPIRIN CHEW 81 MG TABLET PO SCH (09:00)
--- NOTE | 2017-03-19 13:39 | Discharge Summary ---
Shamar Cuadra Lesley, OMERO, am scribing for, and in the presence of, Tracy Espitia NP 13:39. 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 Fang Summary: The patient 67-year-old WM with no history of known CAD, patient experienced severe chest pain and diaphoresis, without nausea, vomiting, or shortness of breath. He took 3 aspirin and the chest pain went away. The following day he went to see his PCP. The patient had an abnormal EKG and an elevated troponin, and was referred to [facility] ER for further evaluation. EKG and enzymes indicated an anterior OR. The patient was started on aspirin, Lovenox, and Plavix, beta- virgie, and BETI inhibitor post OR. Echocardiogram revealed moderate LV systolic dysfunction, LVEF estimated at 40-50%. Patient went for heart cath on 03/18/17, and his post PCI of the proximal LAD, and mid RCA. Patient was loaded with Brilinta and will continue this for at least one year. A low dose of Crestor was started due to dyslipidemia, and the patient's previous inability does tolerate statins. Right groin dressing removed today, the groin is soft, without hematoma or evidence of bleeding. Patient will be discharged home and follow-up with Dr. Fang in 1 week with an EKG, CBC, BMP with mag prior to the appointment. Discharge instructions include the patient may shower, and may not drive until he follows up with the physician. Patient to receive Brilinta, see card upon discharge. Discharge medications: Aspirin 81 mg p.o. daily Ramipril 2.5mg p.o. daily Carvedilol 12.5 mg p.o. twice daily Rosuvastatin 2.5 mg p.o. nightly Brilinta 90 mg p.o. twice daily - Time spent with patient Time with patient DS: Greater than 30 minutes (Record review, assessment, and documentation) Time spent discussing smoking cessation with patient: 3 to 10 minutes Diagnosis - Discharge Diagnosis (1) CAD (coronary artery disease) Status: Chronic (2) Anterior subendocardial OR Status: Resolved (3) Smoker Status: Chronic (4) Hypercholesterolemia Status: Chronic (5) Overweight Status: Chronic (6) Alcohol use Status: Chronic (7) Hypertension Status: Chronic Specialty Discharge - Follow Up or Referrals Follow up with: Eric Fang MD [Physician] - 04/02/17 12:30 pm (EKG, BMP with mag, CBC prior to appointment) Discharge Plan - Discharge Data Disposition: Disch To Home/Self Care Condition at Discharge: Stable Discharge Diet: heart healthy Activity: resume usual activities as tolerated Hygiene: may shower Weight Bearing at Discharge: weight bear as tolerated (post cath instructions, no lifting greater than 10# for 10 days, no squatting) Driving: other (do not drive for 3 days) Contact your physician if you experience:: fever over 101, Redness or swelling, Shortness of breath, Bleeding Wound / Dressing Care Instructions: Post cath instructions. - Discharge Medications New Rosuvastatin [Crestor] 2.5 mg PO BEDTIME #30 tablet Ticagrelor [Brilinta] 90 mg PO BID #60 tablet Ramipril [Altace] 2.5 mg PO DAILY #30 capsule Aspirin Chew Tab 81 mg PO DAILY #30 tablet Carvedilol [Coreg] 12.5 mg PO BID #60 tablet Continue Sertraline [Zoloft] 25 mg PO QAM Discontinued Metoprolol Succinate 50 mg PO QAM Losartan [Cozaar] 50 mg PO QAM - Follow Up or Referral Follow Up: Eric Fang MD [Physician] - 04/02/17 12:30 pm (EKG, BMP with mag, CBC prior to appointment) - Forms/Instructions Instructions: Myocardial Infarction (GEN), Left Heart Catheterization (DC), How to Stop Smoking (GEN), Heart Healthy Diet (GEN), Cigarette Smoking and Your Health (GEN), Coronary Intravascular Stent Placement (DC) Additional Discharge Instructions: Pt. to receive Brilinta pharmacy card upon discharge for one month of free medications. Exam - Constitutional Vitals: Period Temp Pulse Resp BP Sys/Moser Pulse Ox Last 24 Hr 97.5 F-98.1 F 61-74 16-20 135-147/78-98 95-98 Exam: General: [Appears well with no apparent distress.] [Pleasant and cooperative. ] [Appears comfortable.] HEENT: [PERRL, normocephalic, atraumatic]. [Mucous membranes moist.] [No jaundice noted.] [Conjunctiva moist and clear, sclerae anicteric.] Neck: [No JVD/HJR, no thyromegaly or lymphadenopathy noted.] [ No carotid bruit appreciated.] Cardiac: [Regular rate and rhythm.] [No murmur rub or gallop.] [PMI is nondisplaced.] Lungs: [Clear to auscultation without accessory muscle use to assist the respiratory pattern.] [Oxygen in use via nasal cannula.] Abdomen: [Soft, bowel sounds normoactive.] [Nontender and nondistended.] [No abdominal bruit or thrill noted.] [No masses noted.] Musculoskeletal: [No fluid collection.] [Decreased range of motion is noted.] Extremities: [No clubbing, cyanosis noted.] [ No edema noted.] [Upper extremity pulses 2+.] [Lower extremity pulses 2+.] [Capillary refill less than 3 seconds.] Skin: [No unusual lesions or rashes.] [No skin breakdown appreciated.] Neuro: [Awake, alert and oriented 3.] [Moves all extremities well without hemiparesis or paralysis.] [No essential tremor is appreciated.] Discharge Results Labs on day of discharge: Labs from last 24 hours 03/19/17 03/19/17 03/19/17 11:32 04:16 04:16 WBC 11.8 RBC 4.26 Hgb 13.8 L Hct 40.3 L MCV 94.6 MCH 32 MCHC 34.2 RDW 13.6 Plt Count 205 MPV 10.5 Neut % (Auto) 69.3 Lymph % (Auto) 20.4 L Young % (Auto) 8.2 Eos % (Auto) 1.1 Baso % (Auto) 0.6 Neut # (Auto) 8.2 H Lymph # (Auto) 2.4 Young # (Auto) 1.0 H Eos # (Auto) 0.1 Baso # (Auto) 0.1 Immature Gran % 0.4 Nucleated RBC % 0.0 Immature Gran # 0.05 Nucleated RBCs # 0.00 Immature Plt Fraction 0.0 Sodium 137 Potassium 4.2 Chloride 105 Carbon Dioxide 24 Anion Gap 12.2 BUN 11 Creatinine 0.90 GFR Calculation 109 BUN/Creatinine Ratio 12.00 Glucose 89 POC Glucose 120 H Calculated Osmolality 270.8 L Calcium 8.4 L Magnesium 2.2 Total Creatine Kinase CK-MB (CK-2) Troponin I 03/19/17 03/18/17 04:16 18:04 WBC RBC Hgb Hct MCV MCH MCHC RDW Plt Count MPV Neut % (Auto) Lymph % (Auto) Young % (Auto) Eos % (Auto) Baso % (Auto) Neut # (Auto) Lymph # (Auto) Young # (Auto) Eos # (Auto) Baso # (Auto) Immature Gran % Nucleated RBC % Immature Gran # Nucleated RBCs # Immature Plt Fraction Sodium Potassium Chloride Carbon Dioxide Anion Gap BUN Creatinine GFR Calculation BUN/Creatinine Ratio Glucose POC Glucose Calculated Osmolality Calcium Magnesium Total Creatine Kinase 56 D 44 CK-MB (CK-2) 2.4 2.6 Troponin I 0.454 H D 0.683 H DS: Provider Consults: 03/18/17 06:31 Consult to Cardiac Rehabilitation [CONS] Routine Reason for Cardiac Rehabilitation: Other Risk Factor Modification Home Exercise Program/Bill Appt Out Pt Cardiac Rehab Smoking Cessation Admitting Clerk Consult Comment: NSTEMI Report 03/18/17 10:19 Consult to Cardiac Rehabilitation [CONS] Routine Reason for Cardiac Rehabilitation: Risk Factor Modification Other Consult Comment: Evaluate and recommend Expected date of discharge: 03/19/17 Nupur Cuadra Bonnie E, NP, personally performed the services described in this documentation, ascribed by Delmis Ibanez NP in my presence, and it is both accurate and complete [id number] .
== END 2017-03-19 12:49 | disposition home or self-care (01) | DRG 247 ==
LOC: N.ED 18:01 → N.EDINP 19:50 → N.CC 20:08 → N.TELES 03-16 15:26
PROVIDERS: ADMIT Internal Medicine Cardiovascular Disease; ATTEND Internal Medicine Cardiovascular Disease
PROC: CLCCHCL (ICD-10-PCS; 2017-03-18 08:15)